=== PATIENT | female | born 1990 | race African-American/Black ===

== ENCOUNTER 2016-08-26 19:29 | Emergency (ER) | payer OTHER ==
[~2016-08-26] VITALS: Ht 170.2 cm; Wt 65.0 kg
[~2016-08-26 19:29] MED LIST: AMOX875 PO; BENZ100 PO
[2016-08-26 19:32] VITALS: BP 135/97; PULSE 98; RESP 14; TEMP 98.4; O2SAT 99
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
[2016-08-26] MEDS ORDERED: IBUP-232 PO (20:13)
[2016-08-26] MEDS ORDERED: ROBA500T PO (20:13)
[2016-08-26] MEDS ORDERED: KETOROLAC TROMETHAMINE 60 MG/2 ML (IM) VIAL IM ONE (20:15)
[2016-08-26] MEDS ORDERED: ORPHENADRINE INJ 60 MG/2 ML AMP IM ONE (20:15)
== END 2016-08-26 20:35 | disposition home or self-care (01) ==
LOC: NEPK 19:29
DX: S16.1XXA Strain of muscle, fascia and tendon at neck level, initial encounter (principal); S39.012A Strain of muscle, fascia and tendon of lower back, initial encounter; V49.50XA Passenger injured in collision with unspecified motor vehicles in traffic accident, initial encounter
CPT/HCPCS: 96372; 99283; J1885; J2360